=== PATIENT | female | born 1945 | race Caucasian/White ===

== ENCOUNTER 2023-07-12 07:55 | Outpatient (RCR) | payer MEDICARE, SELFPAY ==
--- NOTE | 2023-07-12 08:58 | OPREHPOC ---
Outpatient Therapy Plan of Care This is a Multidisciplinary Plan of Care that may contain components documented by all disciplines (PT, OT, and ST.) PT Problem 1 PT Problem #1 Knowledge Deficit PT Goal 1 Goal 1. independent and compliant with HEP Target Visit 6 PT Problem 2 PT Problem #2 Impaired Range of Motion PT Goal 1 Goal 1. 155 degrees or better active R shoulder flexion 2. 80 degrees or better active R shoulder ER 3. 70 degrees or better active R shoulder IR Target Visit 12 PT Problem 3 PT Problem #3 Impaired Strength PT Goal 1 Goal 1. 4+/5 or better R shoulder strength 2. 5/5 R elbow strength Target Visit 12 PT Problem 4 PT Problem #4 Impaired Functional Mobil PT Goal 1 Goal 1. quick dash to display less than 17% functional deficits 2. patient to lift 5lbs overhead with ease and no pain/core instability 3. patient to lift 10lbs to head level shelf with ease and no swinging of body/arm to put away groceries at home. 4. patient to report no dropping any objects at home in the last 2 weeks Target Visit 12
--- NOTE | 2023-07-12 08:59 | PTOPEVAL1 ---
Assessment and note entered by JT File, PT Evaluation Information Assessment Status Evaluation Diagnosis s/p R RTC repair Onset 04/12/23 Subjective Information patient reports she did not hurt the shoulder, but began having pain in the R shoulder. she reports she had some tests done and found a RTC tear and a labral tear. she reports she had repair on . she reports she has been doing exercises guided by the surgeons office since surgery. she is now 13 weeks post op today. she reports she is still having difficulty with strength in the R shoulder. she reports she is unable to open a jar, she has dropped few things this week, and reach behind her back to wash or get dressed. Reported Pain Level Pain Score 0: Self Report Assessment PT Clinical Summary mrs. naqvi is a 77 yo woman who presents to skilled PT services for evaluation and treatment of R shoulder weakness, decreased rom, and deficits in functional use following a RTC repair. she is 13 weeks s/p repair today and in phase 4 of rehab (strengthening). she presents today with deficits in active/passive R shoulder rom, weakness of the R shoulder, and decreased functional reaching/lifting/carrying of the R UE. she would benefit from continued skilled PT to address her objective/functional deficits to return to her prior level activities without limitations. Plan of Care Interventions Electrical Stimulation,Hot Pack/Cold Pack,Manual Therapy,Neuro Re-education,Patient/Caregiver Educati,Therapeutic Activities,Therapeutic Exercise PT Services Indicated Yes Treatment Frequency and 3x weekly for 12 visits Duration These treatments will address the objective and functional deficits as defined above. The patient will be advanced safely and appropriately in order for the patient to progress towards his/her prior level of function. Additional exercises will be introduced and as well as a comprehensive home exercise program upon discharge, if needed, ?to ensure carryover of functional gains achieved in the clinic. This treatment plan has been reviewed and agreement upon by the patient.
--- NOTE | 2023-08-09 08:28 | OPREHPOC ---
Outpatient Therapy Plan of Care This is a Multidisciplinary Plan of Care that may contain components documented by all disciplines (PT, OT, and ST.) PT Problem 1 PT Problem #1 Knowledge Deficit PT Goal 1 Goal 1. independent and compliant with HEP Target Visit 6 Progress Met PT Problem 2 PT Problem #2 Impaired Range of Motion PT Goal 1 Goal 1. 155 degrees or better active R shoulder flexion 2. 80 degrees or better active R shoulder ER 3. 70 degrees or better active R shoulder IR Target Visit 12 Progress Met PT Problem 3 PT Problem #3 Impaired Strength PT Goal 1 Goal 1. 4+/5 or better R shoulder strength 2. 5/5 R elbow strength Target Visit 12 Progress Met PT Problem 4 PT Problem #4 Impaired Functional Mobil PT Goal 1 Goal 1. quick dash to display less than 17% functional deficits 2. patient to lift 5lbs overhead with ease and no pain/core instability 3. patient to lift 10lbs to head level shelf with ease and no swinging of body/arm to put away groceries at home. 4. patient to report no dropping any objects at home in the last 2 weeks Target Visit 12 Progress Met
--- NOTE | 2023-08-09 08:28 | PTOPDC ---
Assessment and note entered by Trisha Stock DPT Evaluation Information Assessment Status Discharge Diagnosis s/p R RTC repair Onset 04/12/23 Subjective Information patient reports she does not have any shoulder pain. she reports she has been able to return to all daily activities without limitations. she reports she is compliant with HEP Reported Pain Level Pain Score 0: Self Report Assessment PT Clinical Summary Pilar Peterson has been seen for 12 visits of skilled PT and has met all goals at this time. She demonstrates 158 deg of R shoulder flexion and 4+/ 5 R shoulder strength. She has been able to return to all daily activities without limitation. She is independent with HEP and is appropriate for DC at this time. Plan of Care PT Services Indicated No
== END 2023-08-09 16:48 | disposition home or self-care (01) ==
LOC: CHSPT 07:55
DX: M75.121 Complete rotator cuff tear or rupture of right shoulder, not specified as traumatic (principal); S43.431D Superior glenoid labrum lesion of right shoulder, subsequent encounter; Z98.890 Other specified postprocedural states
CPT/HCPCS: 97110; 97150; 97161; 97530